=== PATIENT | male | born 1980 | race Caucasian/White ===

== ENCOUNTER 2017-01-11 05:24 | Emergency (ER) | payer MEDICAID ==
[~2017-01-11] VITALS: Ht 175.3 cm; Wt 106.1 kg
[2017-01-11] MEDS ORDERED: ONDANSETRON 2MG/ML, 2ML ONE (06:15)
[2017-01-11] MEDS ORDERED: LORazepam 2 MG/ML, 1ML ONE (06:15)
[2017-01-11] MEDS ORDERED: SODIUM CHLORIDE FLUSH 10ML SYR IVF ONE (06:30)
[2017-01-11] MEDS ORDERED: THIAMINE 100MG TABLET PO ONE (06:30)
[2017-01-11] MEDS ORDERED: SODIUM CHLORIDE 0.9% 1,000ML IVBOLUS ONE (06:30)
[2017-01-11] MEDS ORDERED: LORazepam 2 MG/ML, 1ML IVPush ONE (06:30)
[2017-01-11] MEDS ORDERED: ONDANSETRON 2MG/ML, 2ML IVPush ONE (06:30)
[2017-01-11] MEDS ORDERED: FOLIC ACID 1 MG TABLET PO ONE (06:30)
[2017-01-11] MEDS ORDERED: THIAMINE 100MG TABLET ONE (06:38)
[2017-01-11 09:44] VITALS: BP 139/88
== END 2017-01-11 09:48 | disposition home or self-care (01) ==
LOC: EDBD 05:24 → ED 09:37
DX: F10.231 Alcohol dependence with withdrawal delirium (principal)
CPT/HCPCS: 96361; 96374; 96375; 99285; J2060; J2405; J7030

== ENCOUNTER 2017-01-11 23:20 | Emergency (ER) | payer MEDICAID ==
[~2017-01-11] VITALS: Ht 175.3 cm; Wt 107.5 kg
[2017-01-11 23:22] VITALS: BP 150/92
[2017-01-11] MEDS ORDERED: LORazepam 1MG TABLET ONE (23:38)
[2017-01-12] MEDS ORDERED: LORazepam 1MG TABLET PO ONE
== END 2017-01-11 23:51 | disposition short-term general hospital (02) ==
LOC: ED 23:36
DX: F10.220 Alcohol dependence with intoxication, uncomplicated (principal); F17.210 Nicotine dependence, cigarettes, uncomplicated
CPT/HCPCS: 99285